=== PATIENT | female | born 1980 | race African-American/Black ===

== ENCOUNTER 2016-11-12 06:04 | Day surgery (SDC) | payer OTHER ==
[2016-11-06 12:25] VITALS: BMI 32.8
[2016-11-12] MEDS ORDERED: PROPOFOL 20 ML ONE ×2 (06:48)
[2016-11-12] MEDS ORDERED: MIDAZOLAM HCL 2 MG/2 ML SINGLE DOSE VIAL ONE ×2 (06:48)
[2016-11-12] MEDS ORDERED: oxyCODONE HCL 5 MG TABLET PO PRN (07:12)
[2016-11-12] MEDS ORDERED: ONDANSETRON 4 MG/2 ML VIAL IVPUSH PRN (07:12)
[2016-11-12] MEDS ORDERED: LACTATED RINGERS SOLUTION 1,000 ML IV SCH (07:15)
[2016-11-12] MEDS ORDERED: POVIDONE-IODINE 5% OPHTHALMIC PREP 30 ML SOLUTION ONE (07:27)
[2016-11-12] MEDS ORDERED: BACITRACIN 3.5 GM OPTHALMIC OINT TUBE ONE (07:27)
[2016-11-12] MEDS ORDERED: LIDOCAINE 1%/EPI 1:100000 (20 ML MULTI DOSE VIAL) ONE (07:27)
[2016-11-12] MEDS ORDERED: BUPIVACAINE HCL/PF 0.5% (5MG/ML) 10 ML VIAL ONE (07:27)
[2016-11-12] MEDS ORDERED: TETRACAINE 0.5% OPHTH SOLN 2 ML BOTTLE ONE (07:27)
[2016-11-12] MEDS ORDERED: ACETAMINOPHEN 500 MG TABLET (FP) PO PRN (08:26)
[2016-11-12 09:43] VITALS: TEMP 97.7
--- NOTE | 2016-11-12 12:07 | OP ---
DATE OF OPERATION: 11/12/2016 PREOPERATIVE DIAGNOSIS: Cystic lesion right medial canthus overlying the medial commissure and lacrimal drainage system. POSTOPERATIVE DIAGNOSIS: Cystic lesion right medial canthus overlying the medial commissure and lacrimal drainage system. PROCEDURE: 1. Examination under anesthesia. 2. Punctual dilation and intubation of the upper and lower canaliculi with Allen probes. 3. Dissection of cystic lesion from right medial canthus, right medial commissure overlying the lacrimal system and the medial canthal tendon apparatus. 4. Repair with suture from flap. SURGEON: Alycia Chowdhury MD ANESTHESIA: Local with sedation. COMPLICATIONS: None. ESTIMATED BLOOD LOSS: Less than 1 mL. DESCRIPTION OF PROCEDURE: The patient was brought to the operating room and placed on the operating room table. anesthesia. Tetracaine was placed in both eyes. Time-out was performed, and after intravenous sedation of a 50/50 mixture of 2% Xylocaine, 1:100,000 epinephrine, 0.5% Marcaine was injected subcutaneously in the nasal third of the upper and lower lid as well as in the medial canthus. The lesion had been marked previously with a sterile marking pen. The patient was prepped and draped in the usual sterile fashion exposing both eyes. The upper and lower punctuate were dilated. The cyst was examined and seemed to be overlying the medial commissure directly. The upper and lower punctuate were intubated with Allen probes. Throughout the remainder of the case, these probes remained intact to guide the course of the canaliculus. Dissection was carried out in the medial canthus in curvilinear fashion adjacent to the base of the lesion and then the lesion was meticulously dissected out from the underlying lacrimal apparatus and canthal tendon apparatus with the Marissa scissors under loupe magnification, and the cyst was removed completely in toto with a piece of overlying skin that had to be removed as it was attached to the skin. Antibiotic irrigation was performed following which the skin flap itself was replaced over the defect and sutured into place with three 6-0 plain suture. The probes were removed. Bacitracin was placed on the medial canthal sutures, and the patient was taken to the recovery room in stable condition. There were no complications. The canaliculi was not entered, and the patient tolerated the procedure well. ALYCIA CHOWDHURY M.D. [id number]
[2016-11-12 12:31] VITALS: BP 107/71; PULSE 62
--- NOTE | 2016-11-14 11:31 | PATH ---
Surgical Pathology Report Patient Name: RADHA WAGONER [facility]. Rec. 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 Electronically Signed Wenceslao Dasilva M.D. Gross Description Received in formalin labeled "right eyelid lesion," is a 0.3 x 0.2 x 0.1 cm murcia, polypoid skin shave. The base is inked green and the specimen is submitted in toto in one cassette. /11/13/2016 saudi11/13/2016
== END 2016-11-12 12:35 | disposition home or self-care (01) ==
LOC: FASU 06:04
PROVIDERS: ATTEND Ophthalmology
PROC: 0HB1XZZ Excision of Face Skin, External Approach (ICD-10-PCS; principal; 2016-11-12 07:58)
DX: D22.11 Melanocytic nevi of right eyelid, including canthus (principal)
CPT/HCPCS: 84703; 88304-TC; 94760